=== PATIENT | female | born 1980 | race Caucasian/White ===

== ENCOUNTER 2018-06-14 08:02 | Outpatient (CLI) | END 2018-06-14 08:03 | disposition home or self-care (01) | LOC: LAB 08:02 | PROVIDERS: ATTEND Obstetrics & Gynecology | DX: E89.41 Symptomatic postprocedural ovarian failure (principal); N95.1 Menopausal and female climacteric states; Z90.710 Acquired absence of both cervix and uterus | CPT/HCPCS: 36415; 82533; 82607; 82626; 82652; 82670; 82679; 82947; 83036; 83525; 84144; 84439; 84443; 84481; 86376 ==

== ENCOUNTER 2019-02-04 12:10 | Outpatient (CLI) ==
--- NOTE | 2019-02-04 12:47 | DI ---
EXAM: LEFT FOOT, 3 VIEWS HISTORY: Foot pain FINDINGS: Bone and joint structures appear normal. No fracture, joint dislocation or joint effusio n is seen. Bone density and soft tissues are within normal limits. IMPRESSION: Within normal limits.
--- NOTE | 2019-02-04 12:58 | US ---
EXAM: Left lower extremity venous Doppler History: Left lower extremity pain. Technique: Multiple sonographic images through the left lower extremity were obtained. Color duplex Doppler was used to interrogate vascular flow. Findings: The left common femoral, greater saphenous, profunda, superficial femoral, popliteal, isabelle verena, posterior tibial and anterior tibial veins demonstrate spontaneous flow with normal compression and normal augmentation. Impression: No sonographic evidence for deep venous thrombosis
== END 2019-02-04 12:11 | disposition home or self-care (01) ==
LOC: RAD 12:10
PROVIDERS: ATTEND Family Medicine
DX: M79.672 Pain in left foot (principal)
CPT/HCPCS: 36415; 80048; 84550; 85651

== ENCOUNTER 2019-02-24 15:30 | Outpatient (RCR) ==
--- NOTE | 2019-02-10 09:46 | RS.OPPTEV2 ---
Date of Note: 02/07/19 Visit #: 1 Number of visits approved by Insurance: n/a Date of Evaluation: 02/07/19 Payer Source: Insurance Surgery Performed?: No Treatment Diagnosis: SI joint inflammation, low back pain radiating into LE's History of Condition/Mechanism of Injury:: Pain begain in 10/2018 and has worsened. No definite injury noted. pt has received steroids from MD but still has pain. Prior Level of Function.....Patient was independent with: ADL's, Self Care, Work /Vocation, Caregiving, Ambulation/Mobility, Community Integration/Access Level of Function: pt is a middle school coach. Functional Limitations: Sleep, Reaching, Pushing, Pulling, Lifting, Sitting, Standing, Bending, Squatting, Ambulation, Community Access/Integration Current Subjective/complaints:: pt states her class was on field trip and she had to sit for long period of time and is hurting much worse today. Reports she has pain radiating into LLE. Treatment Side (optional): Bilateral *Precautions: n/a Medical History Medical History: Unremarkable Surgical History: Hysterectomy Surgical History Comments:: endometrial and cervical ablation Smoking Status: Never smoker Hx Home Medications: taking ibuprofen Patient's Goals: decrease low back pain Pain Assessment - Pain Description Pain Location: lumbar/sacral area radiating into LLE to toes. Current Pain Intensity: 8/10 Functional Outcome Measure Oswestry LBP: 26 - G Codes & Severity Modifier G Codes & Modifier: n/a Source of G Code score: n/a Observation - Observation Inspection: leg length equal Posture: Forward Head, Rounded Shoulders, Increased Thoracic Kyphosis, Decreased Lumbar Lordosis Comments: pt with very guarded posture, shifted to R. Handedness: Right Gait - Gait Pattern Gait Comments: pt amb with guarded posture, decreased step length General Range of Motion: BUE WFL's. BLE WFL's Muscle Strength: BUE 5/5. RLE grossly 5/5( with pain with ROM). LLE hip flex 4 /5, knee flex/ext 4+/5, ankle DF/PF 4+/5 (with pain with ROM) - ROM Lumbar Flexion: Hand reach to Mid-Thighs Sidebending to Left: Reach to Mid-thigh Sidebending to Right: Reach to Proximal Fibular Head Lumbar Spine ROM Limitations: Soft Tissue Tightness, Muscle Weakness, Pain Comments: pt with pain with all planes of ROM - Strength Trunk Extension: 4- Good- Trunk Flexion: 3- Fair- Trunk Lateral Flexion: 3- Fair- - Special Tests KELLY Test: Negative Right, Positive Left SLR Test: Positive Left SI Joint Compression: Positive Palpation Palpation Findings: Tenderness, Trigger Point, Muscle Guarding Comments:: pt presents with trigger points over B SI, muscle guarding as well as tenderness noted over lumbar/sacral area Sensation - Sensation Right Upper Extremity: Intact/Normal Left Upper Extremity: Intact/Normal Right Lower Extremity: Intact/Normal Left Lower Extremity: Impaired (Reports n/t LLE) Balance - Sitting Balance Static Sitting Balance: Normal Dynamic Sitting Balance: Normal - Standing Balance Static Standing Balance: Normal Dynamic Standing Balance: Normal - Treatment Modality: Electrical Stim Unattended Parameters/Method Applied: IFC x 20mins at 10ma Treatment Area: lumbar Patient Position: Right Sidelying - Heat/Cryotherapy Treatment: Cryotherapy Comments:: lumbar/sacral area Interventions - Exercise/Activities/Manual Therapy Exercises/Activities: pt received gentle piriformis stretch BLE, prone lying x 1min pt unable to tolerate further ex due to pain Manual Therapy: n/a HOME EXERCISE PROGRAM: pt given written HEP includiing prone lying, and piriformis stretch. pt instructed to use ice as well as rest and avoid bending, lifting, and twisting. - Charges Timed Code Treatment Minutes: 43 Total Treatment Time: 61 Procedures billed for this date of service:: eval low, estim unattended, cold pack EVALUATION COMPLEXITY LEVEL EVALUATION COMPLEXITY LEVEL: HISTORY: Low, EXAM OF BODY SYSTEMS: Low, CLINICAL PRESENTATION: Medium, CLINICAL DECISION MAKING: Low Assessment Assessment: pt presents with decreased lumbar ROM, pain in lumbar/sacral area radiating into LLE, hamstring and piriformis tightness, muscle guarding and trigger points noted over B SI. Feel pt would benefit from skilled PT for therex for stretching, core strengthening, manual therapy as well as modalities to decrease pain and inflammation. Patient Education: Home Exercise Program, Education of Plan of Care Rehab Potential: Good Short Term Goals Goal #1: pt independent with initial HEP Goal to be met by: 02/21/19 Goal #2: Decrease hamstring and piriformis tightness Goal to be met by: 02/21/19 Goal #3: Improve lumbar ROM Goal to be met by: 02/21/19 Goal #4: pt amb with less guarded posture. Goal to be met by: 02/21/19 Baby Stroller Rental Clerk Goals Goal #1: pt with no reports of radicular symptoms Goal to be met by: 03/07/19 Goal #2: pt rate pain < 5/10 Goal to be met by: 03/07/19 Goal #3: pt able to perform normal day of work with less pain Goal to be met by: 03/07/19 Goal #4: Improve oswestry to < 20 Goal to be met by: 03/07/19 Plan - Treatment to be Provided Procedures: Therapeutic Exercises, Therapeutic Activity, Manual Therapy, Massage , Patient Education Modalities: Electrical Stimulation, Ultrasound/Phonophoresis, Cryotherapy, Hot Packs - Treatment Plan Frequency: 2 X week Duration: 4 weeks Dates of Baby Stroller Rental Clerk Goals: 03/07/19 Expiration date of current Insurance Approval:: n/a - Treatment Code (1) SI (sacroiliac) joint inflammation Code(s): M46.1 - SACROILIITIS, NOT ELSEWHERE CLASSIFIED (2) Lumbar back pain with radiculopathy affecting left lower extremity Code(s): M54.17 - RADICULOPATHY, LUMBOSACRAL REGION (3) Muscle tightness Code(s): M62.89 - OTHER SPECIFIED DISORDERS OF MUSCLE
--- NOTE | 2019-02-11 09:06 | RS.OPPTDN ---
Subjective Date of Note: 02/10/19 Visit #: 2 Number of visits approved by Insurance: na Date of Evaluation: 02/07/19 Payer Source: Insurance Treatment Diagnosis: SI joint inflammation, low back pain radiating into LE's Current Subjective/complaints:: Patient reports mod to high pain in the left lowback and S-I joint and in the upper lumbar paraspinals. Patient reports a reduction in pain and muscle tension following treatment. *Precautions: n/a Pain Assessment - Pain Description Pain Location: upper and lower lumbar paraspinals and left S-I joint Pain Description: Tightness Current Pain Intensity: mod to high - Treatment Modality: Electrical Stim Unattended Parameters/Method Applied: [id number] HVGC to 130p.v. to the bilateral lower lumbar paraspinals and left S-I joint with HP prior to EX. Patient Position: Right Sidelying - Treatment Modality: Ultrasound Parameters/Method Applied: [id number] at 1.5w/cm2 to the bilateral upper lumbar paraspinals following EX. Patient Position: Right Sidelying - Heat/Cryotherapy Treatment: Hot Pack (with Estim ) Interventions - Exercise/Activities/Manual Therapy Exercises/Activities: Assisted gentle hamstring and piriformis stretch. Mid trunk rotation stretch with LE across midline. Isometric left hip ext to start MET, and isometric left hip abd in hook-lying. Isometric hip add with pillow. Pelvic tilt. Patient attempts but is unable to perform bridge. Total minutes of Exercise: 22mins Manual Therapy: n/a HOME EXERCISE PROGRAM: pt given written HEP includiing prone lying, and piriformis stretch. pt instructed to use ice as well as rest and avoid bending, lifting, and twisting. - Charges Timed Code Treatment Minutes: 32mins Total Treatment Time: 52mins Procedures billed for this date of service:: HP, Estim unattended, EX, US Assessment: Patient responding to treatment with reports of a decrease in intensity of pain and muslce tension. Patient is motivated to work on HEP. Patient Education: Education of diagnosis, Body/Joint mechanics, Home Exercise Program, Activity Modification Comments: Patient education of home management with hot shower, Epsom salts bath , rest, and gentle stretching. Patient demonstrates compliance with HEP?: Yes Short Term Goals Goal #1: pt independent with initial HEP Goal to be met by: 02/21/19 Progress towards Goal:: Progressing Goal #2: Decrease hamstring and piriformis tightness Goal to be met by: 02/21/19 Goal #3: Improve lumbar ROM Goal to be met by: 02/21/19 Goal #4: pt amb with less guarded posture. Goal to be met by: 02/21/19 Insurance Sales Producer Goals Goal #1: pt with no reports of radicular symptoms Goal to be met by: 03/07/19 Goal #2: pt rate pain < 5/10 Goal to be met by: 03/07/19 Goal #3: pt able to perform normal day of work with less pain Goal to be met by: 03/07/19 Goal #4: Improve oswestry to < 20 Goal to be met by: 03/07/19 Plan Dates of Insurance Sales Producer Goals: 03/07/19 Expiration date of current Insurance Approval:: 03/07/19 PLAN: Continue modalities and progress exercise. May begin manual therapy to reduce muscle tone.
--- NOTE | 2019-02-13 16:34 | RS.OPPTDN ---
Subjective Date of Note: 02/13/19 Visit #: 3 Number of visits approved by Insurance: na Date of Evaluation: 02/07/19 Payer Source: Insurance Treatment Diagnosis: SI joint inflammation, low back pain radiating into LE's Current Subjective/complaints:: Patent reports feeling better after last session ,also better today.Her pain does elevate later at night ,interfering with her sleep. *Precautions: n/a Pain Assessment - Pain Description Pain Location: lumbar and upper back Pain Description: Dull, Aching Current Pain Intensity: 2-3 - Treatment Modality: Electrical Stim Unattended Parameters/Method Applied: 20 mins. IFC @ 9-10 ma. Patient Position: Right Sidelying - Heat/Cryotherapy Treatment: Hot Pack (concurrent with e-stim) Interventions - Exercise/Activities/Manual Therapy Exercises/Activities: 20 mins. , pelvic tilts SKTC ,piriformis stretch,90/90 halstring stretches.SI muscle energy . Total minutes of Exercise: 20 Manual Therapy: n/a Total minutes of Manual Therapy: 0 HOME EXERCISE PROGRAM: pt given written HEP includiing prone lying, and piriformis stretch. pt instructed to use ice as well as rest and avoid bending, lifting, and twisting. - Charges Timed Code Treatment Minutes: 20 Total Treatment Time: 40 Procedures billed for this date of service:: esther loyd,anne Assessment: Patient progressing well,less intensity of pain today .Good return demo of exercises.She reports stretch discomfort in the hamstrings ,but no increase in back pain. Patient Education: Education of diagnosis, Body/Joint mechanics, Home Exercise Program, Home Safety, Activity Modification, Education of Plan of Care Patient demonstrates compliance with HEP?: Yes Short Term Goals Goal #1: pt independent with initial HEP Goal to be met by: 02/21/19 Progress towards Goal:: Progressing Goal #2: Decrease hamstring and piriformis tightness Goal to be met by: 02/21/19 Progress towards Goal:: Progressing Goal #3: Improve lumbar ROM Goal to be met by: 02/21/19 Progress towards Goal:: Progressing Goal #4: pt amb with less guarded posture. Goal to be met by: 02/21/19 Progress towards Goal:: Progressing Game Engineer Goals Goal #1: pt with no reports of radicular symptoms Goal to be met by: 03/07/19 Goal #2: pt rate pain < 5/10 Goal to be met by: 03/07/19 Goal #3: pt able to perform normal day of work with less pain Goal to be met by: 03/07/19 Goal #4: Improve oswestry to < 20 Goal to be met by: 03/07/19 Plan Dates of Correction Goals: 03/07/19 Expiration date of current Insurance Approval:: na PLAN: Cont. skilled PT to return patient to PLOF,pain free for ADL's.
--- NOTE | 2019-02-17 16:29 | RS.OPPTDN ---
Subjective Date of Note: 02/17/19 Visit #: 4 Number of visits approved by Insurance: na Date of Evaluation: 02/07/19 Payer Source: Insurance Treatment Diagnosis: SI joint inflammation, low back pain radiating into LE's Current Subjective/complaints:: Patient reports feeling much better.She has no radiating pain today,has minimal aching in the L hip. *Precautions: n/a Pain Assessment - Pain Description Pain Location: L hip Pain Description: Dull, Aching Current Pain Intensity: not rated - Treatment Modality: Electrical Stim Unattended Parameters/Method Applied: 20 mins. IFC @ 10 ma to back/hips. Patient Position: Right Sidelying - Heat/Cryotherapy Treatment: Hot Pack (concurrent with e-stim) Interventions - Exercise/Activities/Manual Therapy Exercises/Activities: 20 mins. , pelvic tilts SKTC ,piriformis stretch,90/90 hamstring stretches.SI muscle energy . Total minutes of Exercise: 20 Manual Therapy: n/a Total minutes of Manual Therapy: 0 HOME EXERCISE PROGRAM: pt given written HEP includiing prone lying, and piriformis stretch. pt instructed to use ice as well as rest and avoid bending, lifting, and twisting. - Charges Timed Code Treatment Minutes: 20 Total Treatment Time: 40 Procedures billed for this date of service:: hp,e-stim,ex Assessment: Progressing well toward all goals.She has les frequent ,les intense back/hip pain.She has increased tolerance for prolonged sitting or standing tasks. Patient Education: Education of diagnosis, Body/Joint mechanics, Home Exercise Program, Home Safety, Activity Modification, Education of Plan of Care Patient demonstrates compliance with HEP?: Yes Short Term Goals Goal #1: pt independent with initial HEP Goal to be met by: 02/21/19 Progress towards Goal:: Progressing Goal #2: Decrease hamstring and piriformis tightness Goal to be met by: 02/21/19 Progress towards Goal:: Progressing Goal #3: Improve lumbar ROM Goal to be met by: 02/21/19 Progress towards Goal:: Progressing Goal #4: pt amb with less guarded posture. Goal to be met by: 02/21/19 Progress towards Goal:: Progressing Senior Living Goals Goal #1: pt with no reports of radicular symptoms Goal to be met by: 03/07/19 Progress towards goal: Met Goal #2: pt rate pain < 5/10 Goal to be met by: 03/07/19 Progress towards goal: Met Goal #3: pt able to perform normal day of work with less pain Goal to be met by: 03/07/19 Progress towards goal: Progressing Goal #4: Improve oswestry to < 20 Goal to be met by: 03/07/19 Plan Dates of Cherry Dipper Goals: 03/07/19 Expiration date of current Insurance Approval:: na PLAN: Cont. skilled PT to reduce /eliminate LBP,return to PLOF.
--- NOTE | 2019-02-21 07:57 | RS.OPPTDN ---
Subjective Date of Note: 02/20/19 Visit #: 5 Number of visits approved by Insurance: na Date of Evaluation: 02/07/19 Payer Source: Insurance Treatment Diagnosis: SI joint inflammation, low back pain radiating into LE's Current Subjective/complaints:: Patient continues to feel better,has soreness and slight pain in the L hip only today. *Precautions: n/a Pain Assessment - Pain Description Pain Location: L hip Pain Description: Dull, Aching Current Pain Intensity: 1-2 - Heat/Cryotherapy Treatment: Hot Pack (20 mins. prior to exercises) Interventions - Exercise/Activities/Manual Therapy Exercises/Activities: 25 mins. , pelvic tilts SKTC ,piriformis stretch,90/90 hamstring stretches.SI muscle energy .R sidelying IT band stretches added today. Total minutes of Exercise: 25 Manual Therapy: n/a Total minutes of Manual Therapy: 0 HOME EXERCISE PROGRAM: pt given written HEP includiing prone lying, and piriformis stretch. pt instructed to use ice as well as rest and avoid bending, lifting, and twisting. - Charges Timed Code Treatment Minutes: 25 Total Treatment Time: 45 Procedures billed for this date of service:: hp,ex 2 Assessment: Patient progressing well,has normal gait pattern present entering clinic.She has minimal aching present today. Patient Education: Education of diagnosis, Body/Joint mechanics, Home Exercise Program, Home Safety, Activity Modification, Education of Plan of Care Patient demonstrates compliance with HEP?: Yes Short Term Goals Goal #1: pt independent with initial HEP Goal to be met by: 02/21/19 Progress towards Goal:: Met Goal #2: Decrease hamstring and piriformis tightness Goal to be met by: 02/21/19 Progress towards Goal:: Progressing Goal #3: Improve lumbar ROM Goal to be met by: 02/21/19 Progress towards Goal:: Progressing Goal #4: pt amb with less guarded posture. Goal to be met by: 02/21/19 Progress towards Goal:: Met Longterm Goals Goal #1: pt with no reports of radicular symptoms Goal to be met by: 03/07/19 Progress towards goal: Met Goal #2: pt rate pain < 5/10 Goal to be met by: 03/07/19 Progress towards goal: Met Goal #3: pt able to perform normal day of work with less pain Goal to be met by: 03/07/19 Progress towards goal: Progressing Goal #4: Improve oswestry to < 20 Goal to be met by: 03/07/19 Plan Dates of Drier Feeder Goals: 03/07/19 Expiration date of current Insurance Approval:: na PLAN: Cont. skilled PT to eliminate pain during all ADL's.
--- NOTE | 2019-02-24 16:24 | RS.OPPTDN ---
Subjective Date of Note: 02/24/19 Visit #: 6 Number of visits approved by Insurance: na Date of Evaluation: 02/07/19 Payer Source: Insurance Treatment Diagnosis: SI joint inflammation, low back pain radiating into LE's Current Subjective/complaints:: Patient reports feling better,the pain continues to be lessening and is intermitent now. *Precautions: n/a Pain Assessment - Pain Description Pain Location: lumbar ,L hip Pain Description: Dull, Aching Current Pain Intensity: not rated Other Comments regarding Pain:: minimal - Heat/Cryotherapy Treatment: Hot Pack (20 mins. prior to exercises ) Interventions - Exercise/Activities/Manual Therapy Exercises/Activities: 25 mins. , pelvic tilts SKTC ,piriformis stretch,90/90 hamstring stretches.SI muscle energy .Bridging x 5 reps. Total minutes of Exercise: 25 Manual Therapy: n/a Total minutes of Manual Therapy: 0 HOME EXERCISE PROGRAM: pt given written HEP includiing prone lying, and piriformis stretch. pt instructed to use ice as well as rest and avoid bending, lifting, and twisting. - Charges Timed Code Treatment Minutes: 25 Total Treatment Time: 45 Procedures billed for this date of service:: hp,ex 2 Assessment: Patint reports very mnimal aching at the L trochanter area,no back pain with exercises today.She was able to do bridging pain free also.She is motivated to improve,compliant to recommendations of the therapy staff. Patient Education: Education of diagnosis, Body/Joint mechanics, Home Exercise Program, Home Safety, Activity Modification, Education of Plan of Care Patient demonstrates compliance with HEP?: Yes Short Term Goals Goal #1: pt independent with initial HEP Goal to be met by: 02/21/19 Progress towards Goal:: Met Goal #2: Decrease hamstring and piriformis tightness Goal to be met by: 02/21/19 Progress towards Goal:: Progressing Goal #3: Improve lumbar ROM Goal to be met by: 02/21/19 Progress towards Goal:: Progressing Goal #4: pt amb with less guarded posture. Goal to be met by: 02/21/19 Progress towards Goal:: Met [facility] Goals Goal #1: pt with no reports of radicular symptoms Goal to be met by: 03/07/19 Progress towards goal: Met Goal #2: pt rate pain < 5/10 Goal to be met by: 03/07/19 Progress towards goal: Met Goal #3: pt able to perform normal day of work with less pain Goal to be met by: 03/07/19 Progress towards goal: Met Goal #4: Improve oswestry to < 20 Goal to be met by: 03/07/19 Plan Dates of Puppy Walker Goals: 03/07/19 Expiration date of current Insurance Approval:: na PLAN: Cont. skilled PT to eliminate LBP,return to PLOF.
== END 2019-02-25 23:59 ==
PROVIDERS: ATTEND Orthopaedic Surgery
DX: M46.1 Sacroiliitis, not elsewhere classified (principal)

== ENCOUNTER 2019-03-21 15:30 | Outpatient (RCR) ==
--- NOTE | 2019-02-27 16:36 | RS.OPPTDN ---
Subjective Date of Note: 02/27/19 Visit #: 7 Number of visits approved by Insurance: na Date of Evaluation: 02/07/19 Payer Source: Insurance Treatment Diagnosis: SI joint inflammation, low back pain radiating into LE's Current Subjective/complaints:: Patient reports today is a good day,but Sunday she had increased pain.She also had follow-up appt. at [facility] in [place], [place].She has orders to continue PT. *Precautions: n/a Pain Assessment - Pain Description Pain Location: none currently - Heat/Cryotherapy Treatment: Hot Pack (20 mins. prior to exercises) Interventions - Exercise/Activities/Manual Therapy Exercises/Activities: 25 mins. , pelvic tilts SKTC ,piriformis stretch,90/90 hamstring stretches.SI muscle energy .Bridging x 5 reps. Manual Therapy: n/a HOME EXERCISE PROGRAM: pt given written HEP includiing prone lying, and piriformis stretch. pt instructed to use ice as well as rest and avoid bending, lifting, and twisting. - Charges Timed Code Treatment Minutes: 30 Total Treatment Time: 50 Procedures billed for this date of service:: hp,ex 2 Assessment: Progressing well,has increased hamstring extensibility,moderate tightness in the L piriformis tioday.She reports her pain intensity is less, less frequent ,and for a less duration of time.She is compliant to HEP.We disussed the focus next week will be more on core strength as the pain is better. Patient Education: Body/Joint mechanics, Education of Plan of Care Patient demonstrates compliance with HEP?: Yes Short Term Goals Goal #1: pt independent with initial HEP Goal to be met by: 02/21/19 Progress towards Goal:: Met Goal #2: Decrease hamstring and piriformis tightness Goal to be met by: 02/21/19 Progress towards Goal:: Partially Met (hamstrings met,piriforms progressing) Goal #3: Improve lumbar ROM Goal to be met by: 02/21/19 Progress towards Goal:: Met Goal #4: pt amb with less guarded posture. Goal to be met by: 02/21/19 Progress towards Goal:: Met In Store Banker Goals Goal #1: pt with no reports of radicular symptoms Goal to be met by: 03/07/19 Progress towards goal: Met Goal #2: pt rate pain < 5/10 Goal to be met by: 03/07/19 Progress towards goal: Met Goal #3: pt able to perform normal day of work with less pain Goal to be met by: 03/07/19 Progress towards goal: Met Goal #4: Improve oswestry to < 20 Goal to be met by: 03/07/19 Plan Dates of Nursing Home Goals: 03/07/19 Expiration date of current Insurance Approval:: na PLAN: Cont. skilled PT to eliminate LBP/hip pain ,return to PLOF.
--- NOTE | 2019-03-05 16:17 | RS.OPPTDN ---
Subjective Date of Note: 03/05/19 Visit #: 8 Number of visits approved by Insurance: na Date of Evaluation: 02/07/19 Payer Source: Insurance Treatment Diagnosis: SI joint inflammation, low back pain radiating into LE's Current Subjective/complaints:: Patient reports walking approximately 1/2 mile last night ,tolerated it during the walk,but increased pain present later. *Precautions: n/a Pain Assessment - Pain Description Pain Location: L hip Pain Description: Dull, Aching Current Pain Intensity: 1/10 - Heat/Cryotherapy Treatment: Hot Pack (15 mins. prior to ex) Interventions - Exercise/Activities/Manual Therapy Exercises/Activities: 15 mins. , L LE only today of piriformis stretches ,90/90 hamstring stretches.HEP review. Oswestry today with score of 16. Total minutes of Exercise: 15 Manual Therapy: n/a Total minutes of Manual Therapy: 0 HOME EXERCISE PROGRAM: pt given written HEP includiing prone lying, and piriformis stretch. pt instructed to use ice as well as rest and avoid bending, lifting, and twisting. 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 Patient Education: Education of diagnosis, Body/Joint mechanics, Home Exercise Program, Home Safety, Activity Modification, Education of Plan of Care Patient demonstrates compliance with HEP?: Yes Short Term Goals Goal #1: pt independent with initial HEP Goal to be met by: 02/21/19 Progress towards Goal:: Met Goal #2: Decrease hamstring and piriformis tightness Goal to be met by: 02/21/19 Progress towards Goal:: Partially Met (hamstrings met,piriforms progressing) Goal #3: Improve lumbar ROM Goal to be met by: 02/21/19 Progress towards Goal:: Met Goal #4: pt amb with less guarded posture. Goal to be met by: 02/21/19 Progress towards Goal:: Met Systems Spec Goals Goal #1: pt with no reports of radicular symptoms Goal to be met by: 03/07/19 Progress towards goal: Met Goal #2: pt rate pain < 5/10 Goal to be met by: 03/07/19 Progress towards goal: Met Goal #3: pt able to perform normal day of work with less pain Goal to be met by: 03/07/19 Progress towards goal: Met Goal #4: Improve oswestry to < 20 Goal to be met by: 03/07/19 (16 today) Progress towards goal: Met Plan Dates of Shelter Goals: 03/07/19 Expiration date of current Insurance Approval:: na PLAN: Cont. skilled PT to return patient to PLOF.
--- NOTE | 2019-03-07 16:27 | RS.OPPTDN ---
Subjective Date of Note: 03/07/19 Visit #: 9 Number of visits approved by Insurance: na Date of Evaluation: 02/07/19 Payer Source: Insurance Treatment Diagnosis: SI joint inflammation, low back pain radiating into LE's Current Subjective/complaints:: Patient reports the back is better,L hip aching present today. *Precautions: n/a Pain Assessment - Pain Description Pain Location: L hip Current Pain Intensity: not rated Other Comments regarding Pain:: minimal soreness - Heat/Cryotherapy Treatment: Hot Pack (20 mins. prior to exercises) Interventions - Exercise/Activities/Manual Therapy Exercises/Activities: 25 mins. , piriformis stretches ,90/90 hamstring stretches.R sidelying hip strengthening,standing IT band stretches. Total minutes of Exercise: 25 Manual Therapy: n/a Total minutes of Manual Therapy: 0 HOME EXERCISE PROGRAM: pt given written HEP includiing prone lying, and piriformis stretch. pt instructed to use ice as well as rest and avoid bending, lifting, and twisting. - Charges Timed Code Treatment Minutes: 25 Total Treatment Time: 45 Procedures billed for this date of service:: hp,ex 2 Assessment: Patient has progressed well with the lumbar region ,but continues to report tenderness in the L trochanter area,and with L piriformis stretch.Will discuss patient status and POC. with supervising PT. Patient Education: Education of diagnosis, Body/Joint mechanics, Home Exercise Program, Home Safety, Activity Modification, Education of Plan of Care Patient demonstrates compliance with HEP?: Yes Short Term Goals Goal #1: pt independent with initial HEP Goal to be met by: 02/21/19 Progress towards Goal:: Met Goal #2: Decrease hamstring and piriformis tightness Goal to be met by: 02/21/19 Progress towards Goal:: Partially Met (hamstrings met,L piriformis stretch elicits pain today) Goal #3: Improve lumbar ROM Goal to be met by: 02/21/19 Progress towards Goal:: Met Goal #4: pt amb with less guarded posture. Goal to be met by: 02/21/19 Progress towards Goal:: Met [employer] Goals Goal #1: pt with no reports of radicular symptoms Goal to be met by: 03/07/19 Progress towards goal: Met Goal #2: pt rate pain < 5/10 Goal to be met by: 03/07/19 Progress towards goal: Met Goal #3: pt able to perform normal day of work with less pain Goal to be met by: 03/07/19 Progress towards goal: Met Goal #4: Improve oswestry to < 20 Goal to be met by: 03/07/19 (16 today) Progress towards goal: Met Plan Dates of Aircraft Dispatcher Goals: 03/07/19 Expiration date of current Insurance Approval:: na PLAN: Cont. skilled PT ,discuss patient status with supervising PT .
--- NOTE | 2019-03-11 11:06 | RS.PTSUM ---
Progress Note/Summary Date of Note: 03/10/19 Date of Evaluation: 02/07/19 Number of Visits: 11 Number of visits approved by Insurance: n/a Reporting Period for this Progress Note: 02/07/19-03/10/19 Current Complaints/Gains: pt reports she has decreased pain in lumbar/sacral area. pt states she is doing her ex. She reports she is much improved and would like to focus on L hip because that is where pain began initially. Objective Measurements/Presentation: pt presents with point tenderness to L greater trochanter with L IT band tightness, hamstring and L piriformis tightness. Oswestry score: 16 improved from eval score of 26. G Codes: n/a Source of G Code Score: n/a - Short Term Goals Goal #1: pt independent with initial HEP Goal to be met by: 02/21/19 Progress towards Goal:: Met Goal #2: Decrease hamstring and piriformis tightness Goal to be met by: 02/21/19 Progress towards Goal:: Met (hamstrings met,L piriformis stretch elicits pain today) Goal #3: Improve lumbar ROM Goal to be met by: 02/21/19 Progress towards Goal:: Met Goal #4: pt amb with less guarded posture. Goal to be met by: 02/21/19 Progress towards Goal:: Met - Long-Term Goals Goal #1: Decreased tightness L IT band Goal to be met by: 03/21/19 (new goal 03/10/19) Goal #2: pt rate pain < 4/10 Goal to be met by: 03/21/19 (goal modified 03/10/19) Goal #3: pt able to perform normal day of work without L hip pain increasing Goal to be met by: 03/21/19 (goal modified 03/10/19) Goal #4: Improve oswestry to < 20 Goal to be met by: 03/07/19 (16 today) Progress towards goal: Met - Assessment Assessment of Improvement/Progress: pt has made significant progress with decreased low back and SI joint pain. pt continues with L hip pain with point tenderness noted over L greater trochanter with L IT band tighntess with symptoms consistent with possible L trochanteric bursitis. Feel pt may benefit from PT for continued stretching with focus on L IT band, piriformis as well as modalities to decrease pain and inflammation. Summary: Patient has made progress towards goals., Patient demonstrates potential to gain increased function with therapy - Plan Plan: Continue Plan of Care (new order received) Frequency: 2 X week Duration: 2 weeks Dates of Processing Analyst Goals: 03/21/19 Expiration date of current Insurance Approval:: n/a
--- NOTE | 2019-03-11 11:40 | RS.OPPTDN ---
Subjective Date of Note: 03/10/19 Visit #: 10 Number of visits approved by Insurance: na Date of Evaluation: 02/07/19 Payer Source: Insurance Treatment Diagnosis: SI joint inflammation, low back pain radiating into LE's Current Subjective/complaints:: Patient reports the back is better,still having discomfort in the L hip area. *Precautions: n/a Pain Assessment - Pain Description Pain Location: L hip Pain Description: minimal,but tender to touch (trochanter) Current Pain Intensity: na - Treatment Modality: Ultrasound Parameters/Method Applied: 10 mins. to L trochanter area,@1.5 w/cm2 ,cont. mode Patient Position: Right Sidelying - Heat/Cryotherapy Treatment: Hot Pack, Cryotherapy (heat prior to US,cold after) Interventions - Exercise/Activities/Manual Therapy Exercises/Activities: Reviewed HEP ,emphasis on stretches . Total minutes of Exercise: 0 Manual Therapy: n/a Total minutes of Manual Therapy: 0 HOME EXERCISE PROGRAM: pt given written HEP includiing prone lying, and piriformis stretch. pt instructed to use ice as well as rest and avoid bending, lifting, and twisting. - Charges Timed Code Treatment Minutes: 10 Total Treatment Time: 45 Procedures billed for this date of service:: hp,US,cp Assessment: Patient is tender to palpate the L trochanter today.She tolerates modalities well.She understands to focus more on the stretches now ,as opposed to strengthening .Encouraged to use heat before stretches,ice afterwards. Patient Education: Home Exercise Program Patient demonstrates compliance with HEP?: Yes Short Term Goals Goal #1: pt independent with initial HEP Goal to be met by: 02/21/19 Progress towards Goal:: Met Goal #2: Decrease hamstring and piriformis tightness Goal to be met by: 02/21/19 Progress towards Goal:: Met (hamstrings met,L piriformis stretch elicits pain today) Goal #3: Improve lumbar ROM Goal to be met by: 02/21/19 Progress towards Goal:: Met Goal #4: pt amb with less guarded posture. Goal to be met by: 02/21/19 Progress towards Goal:: Met [facility] Goals Goal #1: Decreased tightness L IT band Goal to be met by: 03/21/19 (new goal 03/10/19) Goal #2: pt rate pain < 4/10 Goal to be met by: 03/21/19 (goal modified 03/10/19) Goal #3: pt able to perform normal day of work without L hip pain increasing Goal to be met by: 03/21/19 (goal modified 03/10/19) Goal #4: Improve oswestry to < 20 Goal to be met by: 03/07/19 (16 today) Progress towards goal: Met Plan Dates of [facility] Goals: 03/21/19 Expiration date of current Insurance Approval:: na PLAN: Cont. skilled PT to elimiate L hip pain.
--- NOTE | 2019-03-12 16:36 | RS.OPPTDN ---
Subjective Date of Note: 03/12/19 Visit #: 11 Number of visits approved by Insurance: na Date of Evaluation: 02/07/19 Payer Source: Insurance Treatment Diagnosis: SI joint inflammation, low back pain radiating into LE's Current Subjective/complaints:: Reports no pain with walking at this time ,but automatic bandsaw tender to touch the L hp area. *Precautions: n/a - Treatment Modality: Ultrasound Parameters/Method Applied: 10 mins. @ 1.5 w/cm2,continuous mode to L trochanter area. Interventions - Exercise/Activities/Manual Therapy Exercises/Activities: 30 mins. total of stretches to L IT band ,SKTC ,DKTC, pelvic tilts,piriformis,figure 4,SI muscle energy ,resisted hip flexion. Total minutes of Exercise: 30 Manual Therapy: n/a Total minutes of Manual Therapy: 0 HOME EXERCISE PROGRAM: pt given written HEP includiing prone lying, and piriformis stretch. pt instructed to use ice as well as rest and avoid bending, lifting, and twisting. - Charges Timed Code Treatment Minutes: 30 Total Treatment Time: 40 Procedures billed for this date of service:: US,ex 2 Assessment: Patient has improved flexibility in hamstrings today .The L piriformis continues to be tighter than the R.Figure 4 stretch on the L elicits pain at trochanetr . Patient Education: Home Exercise Program, Activity Modification, Education of Plan of Care Patient demonstrates compliance with HEP?: Yes Short Term Goals Goal #1: pt independent with initial HEP Goal to be met by: 02/21/19 Progress towards Goal:: Met Goal #2: Decrease hamstring and piriformis tightness Goal to be met by: 02/21/19 Progress towards Goal:: Met (hamstrings met,L piriformis stretch elicits pain today) Goal #3: Improve lumbar ROM Goal to be met by: 02/21/19 Progress towards Goal:: Met Goal #4: pt amb with less guarded posture. Goal to be met by: 02/21/19 Progress towards Goal:: Met Security Rover Goals Goal #1: Decreased tightness L IT band Goal to be met by: 03/21/19 (new goal 03/10/19) Progress towards goal: Progressing Goal #2: pt rate pain < 4/10 Goal to be met by: 03/21/19 (goal modified 03/10/19) Progress towards goal: Progressing Goal #3: pt able to perform normal day of work without L hip pain increasing Goal to be met by: 03/21/19 (goal modified 03/10/19) Progress towards goal: Progressing Goal #4: Improve oswestry to < 20 Goal to be met by: 03/07/19 (16 today) Progress towards goal: Met Plan Dates of [facility] Goals: 03/21/19 Expiration date of current Insurance Approval:: na PLAN: Cont. PT to return patient to pain free level with ADL's.
--- NOTE | 2019-03-18 16:22 | RS.OPPTDN ---
Subjective Date of Note: 03/17/19 Visit #: 12 Number of visits approved by Insurance: na Date of Evaluation: 02/07/19 Payer Source: Insurance Treatment Diagnosis: SI joint inflammation, low back pain radiating into LE's Current Subjective/complaints:: Patient reports back pain is better but left lateral hip pain continues. States she is working on HEP and using heat and ice to manage pain at night. *Precautions: n/a Pain Assessment - Pain Description Pain Location: left lateral hip joint Current Pain Intensity: mod - Treatment Modality: Ultrasound Parameters/Method Applied: [id number] at 1.5w/cm2 to the left lat hip joint prior to EX. Patient Position: Right Sidelying - Heat/Cryotherapy Treatment: Cryotherapy (Ended with CP [id number] to the left lateral hip following EX. Patient in right side-lying. ) Interventions - Exercise/Activities/Manual Therapy Exercises/Activities: 27mins total. Stretching of the bilateral hamstrings, SKTC, piriformis, and IT band, with focus on the left. Pelvic tilts, Isometric hip add with pillow,. S-I muscle energy with isometric left hip extension and isometric hip flexion. Isometric hip abd in hook-lying. Side- lying ITB stretch. Total minutes of Exercise: 27mins Manual Therapy: n/a HOME EXERCISE PROGRAM: pt given written HEP includiing prone lying, and piriformis stretch. pt instructed to use ice as well as rest and avoid bending, lifting, and twisting. - Charges Timed Code Treatment Minutes: 39mins Total Treatment Time: 54mins Procedures billed for this date of service:: US, EX2, CP Assessment: Patient reporting improvment with treatment and appears to be working on HEP. Patient Education: Education of diagnosis, Body/Joint mechanics, Home Exercise Program Patient demonstrates compliance with HEP?: Yes Short Term Goals Goal #1: pt independent with initial HEP Goal to be met by: 02/21/19 Progress towards Goal:: Met Goal #2: Decrease hamstring and piriformis tightness Goal to be met by: 02/21/19 Progress towards Goal:: Met (hamstrings met,L piriformis stretch elicits pain today) Goal #3: Improve lumbar ROM Goal to be met by: 02/21/19 Progress towards Goal:: Met Goal #4: pt amb with less guarded posture. Goal to be met by: 02/21/19 Progress towards Goal:: Met Log Sorter Goals Goal #1: Decreased tightness L IT band Goal to be met by: 03/21/19 (new goal 03/10/19) Progress towards goal: Progressing Goal #2: pt rate pain < 4/10 Goal to be met by: 03/21/19 (goal modified 03/10/19) Progress towards goal: Progressing Goal #3: pt able to perform normal day of work without L hip pain increasing Goal to be met by: 03/21/19 (goal modified 03/10/19) Progress towards goal: Progressing Goal #4: Improve oswestry to < 20 Goal to be met by: 03/07/19 (16 today) Progress towards goal: Met Plan Dates of Log Sorter Goals: 03/21/19 Expiration date of current Insurance Approval:: 03/21/19 PLAN: Continue with modalities and progress exercise to reduce pain and increase patients ability with functional activities.
--- NOTE | 2019-03-19 16:30 | RS.OPPTDN ---
Subjective Date of Note: 03/19/19 Visit #: 13 Number of visits approved by Insurance: na Date of Evaluation: 02/07/19 Payer Source: Insurance Treatment Diagnosis: SI joint inflammation, low back pain radiating into LE's Current Subjective/complaints:: Patient reports pain was only mild the day after the last treatment, but pain increased yesterday after standing for a long period at work. *Precautions: n/a Pain Assessment - Pain Description Pain Location: left hip Pain Description: Aching Current Pain Intensity: mild to mod - Treatment Modality: Ultrasound Parameters/Method Applied: [id number]. US at 1.5w/cm2 to the left lateral hip and gluteal region [id number] prior to EX. Patient Position: Right Sidelying - Heat/Cryotherapy Treatment: Cryotherapy (Ended with 15mins of CP to the left hip following EX. Patient in right side-lying. ) Interventions - Exercise/Activities/Manual Therapy Exercises/Activities: 17mins total. Stretching of the bilateral hamstrings, SKTC, piriformis, and IT band, with focus on the left. Pelvic tilts. S-I muscle energy with isometric left hip extension and isometric hip flexion. Isometric left hip abd with manual resist. ITB stretch. Total minutes of Exercise: 17mins Manual Therapy: n/a HOME EXERCISE PROGRAM: pt given written HEP includiing prone lying, and piriformis stretch. pt instructed to use ice as well as rest and avoid bending, lifting, and twisting. - Charges Timed Code Treatment Minutes: 29mins Total Treatment Time: 50mins Procedures billed for this date of service:: US, EX, CP Assessment: Patient reporting good response to last treatment with a decrease in pain. Patient Education: Home Exercise Program Patient demonstrates compliance with HEP?: Yes Short Term Goals Goal #1: pt independent with initial HEP Goal to be met by: 02/21/19 Progress towards Goal:: Met Goal #2: Decrease hamstring and piriformis tightness Goal to be met by: 02/21/19 Progress towards Goal:: Met (hamstrings met,L piriformis stretch elicits pain today) Goal #3: Improve lumbar ROM Goal to be met by: 02/21/19 Progress towards Goal:: Met Goal #4: pt amb with less guarded posture. Goal to be met by: 02/21/19 Progress towards Goal:: Met [facility] Goals Goal #1: Decreased tightness L IT band Goal to be met by: 03/21/19 (new goal 03/10/19) Progress towards goal: Progressing Goal #2: pt rate pain < 4/10 Goal to be met by: 03/21/19 (goal modified 03/10/19) Progress towards goal: Progressing Goal #3: pt able to perform normal day of work without L hip pain increasing Goal to be met by: 03/21/19 (goal modified 03/10/19) Progress towards goal: Progressing Goal #4: Improve oswestry to < 20 Goal to be met by: 03/07/19 (16 today) Progress towards goal: Met Plan Dates of Snf Goals: 03/21/19 Expiration date of current Insurance Approval:: 03/21/19 PLAN: Continue modalities and progress exercise to reduce pain and increase functional activity level.
--- NOTE | 2019-03-26 15:23 | RS.OPPTDN ---
Subjective Date of Note: 03/21/19 Visit #: 14 Number of visits approved by Insurance: na Date of Evaluation: 02/07/19 Payer Source: Insurance Treatment Diagnosis: SI joint inflammation, low back pain radiating into LE's Current Subjective/complaints:: Patient reports she has progressed well with treatment. States she continues to have pain at the left lateral hip joint, but has been very mild the last few days. She reports pain with mod palpation, but states this is much better. States she will contine HEP following discharge. *Precautions: n/a Pain Assessment - Pain Description Pain Location: left lat hip joint Pain Description: Aching Current Pain Intensity: mild, increased with palpation - Treatment Modality: Ultrasound Parameters/Method Applied: [id number] at 1.5w/cm2 to the left lateral hip joint, along prox ITB, and to line of piriformis. Patient Position: Right Sidelying - Heat/Cryotherapy Treatment: Cryotherapy (Ended with 15mins CP to the left lat hip joint with patient in right side-lying. ) Interventions - Exercise/Activities/Manual Therapy Exercises/Activities: 19mins total. Stretching of the bilateral hamstrings, SKTC, piriformis, and IT band, with focus on the left. Pelvic tilts. Discussed S-I muscle energy with isometric left hip extension and isometric hip flexion. ITB stretch. Discussion of HEP with patient verbalizing understanding and intension to continue. Total minutes of Exercise: 19mins Manual Therapy: n/a HOME EXERCISE PROGRAM: pt given written HEP includiing prone lying, and piriformis stretch. pt instructed to use ice as well as rest and avoid bending, lifting, and twisting. - Charges Timed Code Treatment Minutes: 33mins Total Treatment Time: 48mins Procedures billed for this date of service:: US, EX, CP Assessment: Patient has progressed well and benefitted from treatment. She has met 7 of 8 treatment goals. She will continue HEP following discharge. Patient Education: Body/Joint mechanics, Home Exercise Program, Home Safety, Activity Modification Patient demonstrates compliance with HEP?: Yes Short Term Goals Goal #1: pt independent with initial HEP Goal to be met by: 02/21/19 Progress towards Goal:: Met Goal #2: Decrease hamstring and piriformis tightness Goal to be met by: 02/21/19 Progress towards Goal:: Met (hamstrings met,L piriformis stretch elicits pain today) Goal #3: Improve lumbar ROM Goal to be met by: 02/21/19 Progress towards Goal:: Met Goal #4: pt amb with less guarded posture. Goal to be met by: 02/21/19 Progress towards Goal:: Met [facility] Goals Goal #1: Decreased tightness L IT band Goal to be met by: 03/21/19 (new goal 03/10/19) Progress towards goal: Met Goal #2: pt rate pain < 4/10 Goal to be met by: 03/21/19 (goal modified 03/10/19) Progress towards goal: Met Goal #3: pt able to perform normal day of work without L hip pain increasing Goal to be met by: 03/21/19 (goal modified 03/10/19) Progress towards goal: Progressing Goal #4: Improve oswestry to < 20 Goal to be met by: 03/07/19 (16 today) Progress towards goal: Met Plan Dates of Repairer Controller Tester Goals: 03/21/19 Expiration date of current Insurance Approval:: 03/21/19 PLAN: Discharge with HEP.
--- NOTE | 2019-03-26 15:24 | RS.QUICKDC ---
Discharge from PT Date of Discharge: 03/26/19 Number of Visits: 14 Reason for Discharge: Patient progressed well and benefitted from treatment. She met 7 or 8 treatment goals and was independent with HEP. She reported an increase in her functional activity level. DIscharged with HEP.
== END 2019-03-28 23:59 ==
PROVIDERS: ATTEND Orthopaedic Surgery
DX: M46.1 Sacroiliitis, not elsewhere classified (principal)